=== PATIENT | male | born 1965 | race Caucasian/White ===

== ENCOUNTER 2018-02-23 16:24 | Inpatient (IN) | payer BC ==
[~2018-02-23] VITALS: Ht 177.8 cm; Wt 58.1 kg
[~2018-02-23 16:24] MED LIST: ACYC15OI8; ALBU18HF2 INH; EMTR1TAB10 PO; NAPR-1009; NATE60TA4 PO; URSO500T9 PO
[2018-02-23] MEDS ORDERED: ONDANSETRON ODT 4 MG TABLET PO (16:47)
[2018-02-23] MEDS ORDERED: DIAZEPAM 2 MG TABLET (16:47)
[2018-02-23] MEDS ORDERED: METHYLPREDNISOLONE 4 MG DOSEPK (16:47)
[2018-02-23] MEDS ORDERED: SITA100T PO (16:50)
[2018-02-23] MEDS ORDERED: FAMO-132 PO (16:50)
[2018-02-23] MEDS ORDERED: FLUT1BLS IH (16:50)
[2018-02-23] MEDS ORDERED: METH4TAB21 PO (16:50)
[2018-02-23] MEDS ORDERED: ONDANSETRON 4 MG/2 ML VIAL IV ONE (17:15)
[2018-02-23] MEDS ORDERED: HYDROMORPHONE 1 MG/1 ML DISP.SYRIN IV ONE (17:15)
[2018-02-23] MEDS ORDERED: IV NORMAL SALINE 1000 ML BAG IV ONE ×2 (17:15→18:30)
[2018-02-23 17:29] LABS: BASOPHILS # (AUTO) 0.1 K/uL (0.0-8.0); BASOPHILS % (AUTO) 0.6 % (0.0-2.0); EOSINOPHILS % (AUTO) 0.2 % (0.0-7.0); HEMATOCRIT 47.3 % (36.7-47.1); HEMOGLOBIN 15.9 g/dL (12.5-16.3); LYMPHOCYTES # (AUTO) 1.3 K/uL (20.0-40.0); LYMPHOCYTES % (AUTO) 10.8 % (20.5-51.5); MEAN CORPUSCULAR HEMOGLOBIN 31.4 uug (23.8-33.4); MEAN CORPUSCULAR HGB CONC 34 g/dL (32.5-36.3); MEAN CORPUSCULAR VOLUME 93.2 fL (73.0-96.2); MONOCYTES # (AUTO) 0.6 K/uL (2.0-10.0); MONOCYTES % (AUTO) 5.1 % (0.0-11.0); NEUTROPHILS # (AUTO) 10.4 K/uL (1.8-8.9); NEUTROPHILS % (AUTO) 83.3 % (38.5-71.5); PLATELET COUNT (AUTO) 178 K/uL (152-348); RED BLOOD CELL COUNT(AUTO) 5.08 MIL/uL (4.06-5.63); WHITE BLOOD COUNT (AUTO) 12.5 K/uL (3.6-10.2)
[2018-02-23 17:33] LABS: CREATININE 0.8 mg/dL (0.6-1.3); POTASSIUM 3.9 mmol/L (3.5-5.1)
[2018-02-23] MEDS ORDERED: ONDANSETRON 4 MG/2 ML VIAL ONE (17:36)
[2018-02-23] MEDS ORDERED: HYDROMORPHONE 2 MG/1 ML DISP.SYRIN ONE (17:36)
[2018-02-23] MEDS ORDERED: MAGNESIUM HYDROXIDE 30 ML LIQUID UDC PO PRN (18:45)
[2018-02-23] MEDS ORDERED: HYDROCODONE/APAP 10-325 MG TABLET PO PRN (18:45)
[2018-02-23] MEDS ORDERED: HYDROMORPHONE 1 MG/1 ML DISP.SYRIN IV PRN (18:45)
[2018-02-23] MEDS ORDERED: ACETAMINOPHEN 325 MG TABLET PO PRN (18:45)
--- NOTE | 2018-02-23 18:46 | NUR ---
Pt. admitted to TELE, under care of Dr. Allison Belongs List completed
--- NOTE | 2018-02-23 18:55 | NUR ---
PT ARRIVED ON THE UNIT VIA GURNEY, CALM, COOPERATIVE, NO SIGNS OF RESPIRATORY DISTRESS NOTED AT THIS TIME, AOX3, SKIN INTACT, IV SITE PATENT. CONTINUE TO MONITOR.
[2018-02-23] MEDS ORDERED: CYCLOBENZAPRINE HCL 10 MG TABLET PO PRN (19:00)
--- NOTE | 2018-02-23 19:45 | NUR ---
Dheeraj PUBLIC AFFAIRS DIRECTOR at bedside with patient discussing POC. Changed [place] to Percocet for pain. Patient orientated to unit and use of call light. Instructed to not get out of bed without assistance due to dizziness. Partner is at bedside. Belongings list completed. Admission interview questions conducted and reviewing admission orders at this time.
[2018-02-23 20:00] VITALS: BP 136/86
[2018-02-23] MEDS: ONDANSETRON 4 MG/2 ML VIAL IV PRN (23:54)
[2018-02-23] MEDS: OXYCODONE/APAP 5-325 MG TABLET PO PRN (23:58)
[2018-02-24] MEDS: TEMAZEPAM 15 MG CAPSULE PO PRN (00:17)
[2018-02-24 04:26] VITALS: BP 151/81
[2018-02-24 06:00] LABS: LYMPHOCYTES # (AUTO) 1.3 K/uL (20.0-40.0); MEAN CORPUSCULAR VOLUME 92.9 fL (73.0-96.2); MONOCYTES # (AUTO) 0.4 K/uL (2.0-10.0)
[2018-02-24] MEDS: ONDANSETRON 4 MG/2 ML VIAL IV PRN (06:00)
[2018-02-24] MEDS: OXYCODONE/APAP 5-325 MG TABLET PO PRN (06:01)
[2018-02-24 06:11] LABS: CREATININE 0.8 mg/dL (0.6-1.3)
[2018-02-24 06:45] LABS: BASOPHILS % (AUTO) 0.5 % (0.0-2.0); EOSINOPHILS % (AUTO) 0.3 % (0.0-7.0); LYMPHOCYTES % (AUTO) 18.3 % (20.5-51.5); MEAN CORPUSCULAR HGB CONC 34 g/dL (32.5-36.3); MONOCYTES % (AUTO) 5.8 % (0.0-11.0); NEUTROPHILS # (AUTO) 5.2 K/uL (1.8-8.9); NEUTROPHILS % (AUTO) 75.1 % (38.5-71.5); PLATELET COUNT (AUTO) 135 K/uL (152-348); RED BLOOD CELL COUNT(AUTO) 4.46 MIL/uL (4.06-5.63)
[2018-02-24 06:47] LABS: HEMATOCRIT 41.4 % (36.7-47.1); HEMOGLOBIN 14.3 g/dL (12.5-16.3)
[2018-02-24] MEDS: PANTOPRAZOLE SODIUM 40 MG TABLET.DR PO SCH (06:48)
--- NOTE | 2018-02-24 07:39 | NUR ---
Noted pt with 100mL of green watery emesis. Pt received Zofran 4mg IV at 0600. Per pt, he suddenly felt nauseous when he tried to get up for the bathroom just now. Pt c/o 05/15 headache, Percocet 5/325mg given at 0600 per pt was ineffective. Will administer Dilaudid 1mg IV PRN. Will continue to monitor.
[2018-02-24 08:00] VITALS: BP 141/96
[2018-02-24] MEDS: HYDROMORPHONE 2 MG/1 ML DISP.SYRIN IV PRN ×3 (08:03→17:35)
[2018-02-24] MEDS ORDERED: GADODIAMIDE 5 MMOL/10 ML VIAL ONE (08:17)
--- NOTE | 2018-02-24 10:07 | NUR ---
Seen and examined by Doug Esqueda NP.
[2018-02-24 11:50] VITALS: BP 138/80
[2018-02-24] MEDS: IV NS 1000 ML 1,000 ML IV PRN ×2 (15:03)
[2018-02-24] MEDS ORDERED: DEXTROSE 50% 50 ML DISP.SYRIN IV PRN (15:45)
[2018-02-24 16:15] VITALS: BP 140/86
[2018-02-24] MEDS: BLOOD SUGAR DIAGNOSTIC 1 EACH STRIP VI SCH ×2 (17:35→20:08)
[2018-02-24] MEDS: INSULIN REGULAR, HUMAN 300 UNIT/3 ML VIAL SQ PRN ×2 (17:44→20:10)
--- NOTE | 2018-02-24 18:20 | NUR ---
Pt left for Head MRI with and without contrast. Accompanied by x2 [facility] Staff. Left in fair condition. No acute distress noted. Endorsed to [facility] staff.
--- NOTE | 2018-02-24 19:45 | NUR ---
RECEIVED PATIENT BACK FROM [facility] [place]. PATIENT IS A/O X4. NO C/O PAIN ON TIME OF ARRIVAL BACK TO THE FLOOR. NO RESP. DISTRESS NOTED. HEPLOCK INTACT AND PATENT, NOTED TO LEFT HAND #22 GAUGE. PATIENT RESTARTED ON IVF ORDERED. DR. XIONG, PAIN MANAGEMENT MD AT BEDSIDE TO ASSESS PATIENT. CALL LIGHT IN REACH. ALL NEEDS ATTENDED. WILL CONTINUE TO MONITOR AND ASSESS.
[2018-02-24 20:00] VITALS: BP 138/88
--- NOTE | 2018-02-24 20:30 | NUR ---
DR. XIONG, STATED HE WILL COME BACK [facility] TO REVIEW RESULTS FROM MRI. ALL NEEDS ATTENDED.
[2018-02-24] MEDS: GABAPENTIN 300 MG CAPSULE PO SCH (21:34)
[2018-02-25] MEDS: ACETAMINOPHEN 325 MG TABLET PO SCH ×5 (00:02→23:56)
[2018-02-25] MEDS: TEMAZEPAM 15 MG CAPSULE PO PRN (00:08)
[2018-02-25 03:06] LABS: *BASOS 0 % (Not Estab.); *EOS 1 % (Not Estab.); *HCT 43.2 % (37.5-51.0); *HGB 14.6 g/dL (13.0-17.7); *IMMATURE GRANULOCYTES 0.1 x10E3/uL (0.0-0.1); *IMMATURE GRANULOCYTES 1 % (Not Estab.); *LYMPHOCYTES 18 % (Not Estab.); *LYMPHOCYTES ABSOLUTE 1.5 x10E3/uL (0.7-3.1); *MCH 31.9 pg (26.6-33.0); *MCHC 33.8 g/dL (31.5-35.7); *MCV 94 fL (79-97); *MONOCYTES 7 % (Not Estab.); *MONOCYTES ABSOLUTE 0.5 x10E3/uL (0.1-0.9); *NEUTROPHILS 73 % (Not Estab.); *NEUTROPHILS ABSOLUTE 5.8 x10E3/uL (1.4-7.0); *PLT 149 x10E3/uL (150-379); *RBC 4.58 x10E6/uL (4.14-5.80); *RDW 15.1 % (12.3-15.4); *WBC 7.9 x10E3/uL (3.4-10.8)
[2018-02-25 04:00] VITALS: BP 128/87
--- NOTE | 2018-02-25 06:00 | NUR ---
PATIENT RESTING IN BED. SLEPT WELL. DENIES PAIN AT THIS TIME. NO RESP. DISTRESS NOTED. IVF INFUSING WELL. CALL LIGHT IN REACH. ALL NEEDS ATTENDED. WILL CONTINUE TO MONITOR.
[2018-02-25] MEDS: PANTOPRAZOLE SODIUM 40 MG TABLET.DR PO SCH (06:08)
[2018-02-25] MEDS: IV NS 1000 ML 1,000 ML IV PRN ×2 (06:29→20:00)
[2018-02-25] MEDS: BLOOD SUGAR DIAGNOSTIC 1 EACH STRIP VI SCH ×4 (06:30→20:27)
--- NOTE | 2018-02-25 07:30 | NUR ---
PATIENT IS AWAKE ALERT AND ORIENTED HE WAS INSTRUCTED THAT HIS RADIOLOGIST DR BRYANT HAS ORDERED A SPINAL TAP TODAY TO RULE OUT MENINGITIS ANS WE WILL PLACE HIM ON CONTACT ISOLATION UNTIL THE SPINAL TAP IS DONE AND RESULTED AND HE EXPRESSED UNDERSTANDING.
[2018-02-25] MEDS: INSULIN REGULAR, HUMAN 300 UNIT/3 ML VIAL SQ PRN ×4 (08:12→20:34)
--- NOTE | 2018-02-25 09:15 | NUR ---
DR BRYANT HERE TO SEE PATIENT AND AWARE THAT WE PLACED PATIENT ON ISOLATION BASED ON THE SPINAL TAP ORDER TO RULE OUT MENINGITIS WE ARE STILL WAITING FOR THE LUMBAR SPINAL TAP AND PER THE TECH THE RADIOLOGIST WILL BE HERE THIS AFTERNOON.
[2018-02-25 11:06] LABS: *HELPER T-LYMPH MARKR(CD4)ABSO 599 /uL (359-1519); *HELPER T-LYNPH MARKER CD4)% 39.9 % (30.8-58.5)
[2018-02-25] MEDS: HYDROMORPHONE 2 MG/1 ML DISP.SYRIN IV PRN ×2 (11:32→16:46)
--- NOTE | 2018-02-25 11:51 | NUR ---
PATIENT REFUSED TYLENOL ORDERED REQUESTED FOR DILAUDID GIVEN ORDERED.CONSCENT FOR THE LUMBAR PUNCTURE OBTAINED PRIOR TO DILAUDID BEING GIVEN.
[2018-02-25 12:07] VITALS: BP 143/90
--- NOTE | 2018-02-25 13:41 | NUR ---
CALL RECEIVED FROM DR SCHMIDT WANTED TO KNOW IF PATIENT WAS ON ANTICOAGULANTS AND I SAID NO AND ALSO IF PATIENT SIGNED THE CONSCENT YET AND I SAID YES SO HE STATED FOR ME TO ORDER CBC PT/PTT WITH INR STATED THAT HE WILL CALL DR BRYANT.
[2018-02-25 14:11] LABS: BASOPHILS # (AUTO) 0.1 K/uL (0.0-8.0); BASOPHILS % (AUTO) 0.8 % (0.0-2.0); EOSINOPHILS # (AUTO) 0.1 K/uL (0.0-0.7); EOSINOPHILS % (AUTO) 0.9 % (0.0-7.0); HEMATOCRIT 44.1 % (36.7-47.1); LYMPHOCYTES # (AUTO) 1.4 K/uL (20.0-40.0); LYMPHOCYTES % (AUTO) 18.6 % (20.5-51.5); MEAN CORPUSCULAR HEMOGLOBIN 31.7 uug (23.8-33.4); MEAN CORPUSCULAR HGB CONC 34 g/dL (32.5-36.3); MEAN CORPUSCULAR VOLUME 93.3 fL (73.0-96.2); MONOCYTES # (AUTO) 0.4 K/uL (2.0-10.0); MONOCYTES % (AUTO) 5.8 % (0.0-11.0); NEUTROPHILS # (AUTO) 5.6 K/uL (1.8-8.9); NEUTROPHILS % (AUTO) 73.9 % (38.5-71.5); PLATELET COUNT (AUTO) 136 K/uL (152-348); RED BLOOD CELL COUNT(AUTO) 4.73 MIL/uL (4.06-5.63); WHITE BLOOD COUNT (AUTO) 7.6 K/uL (3.6-10.2)
[2018-02-25 16:23] VITALS: BP 124/0
--- NOTE | 2018-02-25 17:10 | NUR ---
PATIENT IS RESTING MEDICATED TWO TIMES FOR C/O SEVERE PAIN WITH DILAUDID STATED THAT OTHER MEDICATIONS DOES NOT HELP HIM GIVEN ORDERED
[2018-02-25 19:30] VITALS: BP 146/87
--- NOTE | 2018-02-25 20:00 | NUR ---
RECEIVED PATIENT AWAKE IN BED WITH PARTNER AT BEDSIDE. PATIENT IS A/O X4. NO C/O PAIN OR H.A AT THIS TIME. DENIES ANY N/V. IVF INFUSING WELL TO LEFT HAND #22 GAUGE. PATIENT IS ON ISOLATION FOR POSSIBLE MENINGITIS. VSS. CALL LIGHT IN REACH. ALL NEEDS ATTENDED. WILL CONTINUE TO MONITOR AND ASSESS.
[2018-02-25] MEDS: GABAPENTIN 300 MG CAPSULE PO SCH (20:16)
[2018-02-26] MEDS: HYDROMORPHONE 2 MG/1 ML DISP.SYRIN IV PRN ×5 (00:43→21:02)
--- NOTE | 2018-02-26 01:00 | NUR ---
DR. ISA CAT CALLED TO INFORM THAT HE WOULD BE DOING THE PATIENTS LUMBAR PUNCTURE IN THE AM. NOTIFIED GRIDDLE ATTENDANT. ALL NEEDS ATTENDED. PATIENT ALSO INFORMED. VERBALIZED UNDERSTANDING.
[2018-02-26 05:03] VITALS: BP 118/84
[2018-02-26] MEDS: ACETAMINOPHEN 325 MG TABLET PO SCH ×4 (05:53→23:28)
[2018-02-26] MEDS: PANTOPRAZOLE SODIUM 40 MG TABLET.DR PO SCH (06:08)
--- NOTE | 2018-02-26 06:30 | NUR ---
PATIENT AWAKE IN BED. C/O HEADACHE. PATIENT GIVEN DILAUDID 1MG IV PER IMPROVEMENT LEADER. VSS. CONSENT SIGNED FOR LUMBAR PUNCTURE IM AM. SLEPT AT INTERVALS. CALL LIGHT IN REACH. ALL NEEDS ATTENDED. WILL CONTINUE TO MONITOR.
[2018-02-26] MEDS: BLOOD SUGAR DIAGNOSTIC 1 EACH STRIP VI SCH ×4 (06:33→21:02)
--- NOTE | 2018-02-26 07:45 | NUR ---
ALERT ORIENTED STATED COMFORTABLE AT THIS TIME HAD PAIN MEDICATION ADMINISTERED AT 0630 AWAITING FOR THE LUMBER PUNCTURE ORDERED.REMAINS ON CONTACT ISOLATION AT THIS TIME PENDING THE RESULT OF THE LUMBER PUNCTURE AND PATIENT IS AWARE.
[2018-02-26] MEDS: INSULIN REGULAR, HUMAN 300 UNIT/3 ML VIAL SQ PRN ×3 (08:17→16:55)
[2018-02-26 09:06] LABS: *BASOS 0 % (Not Estab.); *EOS 1 % (Not Estab.); *EOS ABSOLUTE 0.1 x10E3/uL (0.0-0.4); *HCT 43.1 % (37.5-51.0); *HGB 14.1 g/dL (13.0-17.7); *IMMATURE GRANULOCYTES 1 % (Not Estab.); *LYMPHOCYTES 19 % (Not Estab.); *LYMPHOCYTES ABSOLUTE 1.3 x10E3/uL (0.7-3.1); *MCH 31.3 pg (26.6-33.0); *MCHC 32.7 g/dL (31.5-35.7); *MCV 96 fL (79-97); *MONOCYTES 7 % (Not Estab.); *MONOCYTES ABSOLUTE 0.5 x10E3/uL (0.1-0.9); *NEUTROPHILS 72 % (Not Estab.); *PLT 130 x10E3/uL (150-379); *RDW 15.3 % (12.3-15.4); *WBC 6.8 x10E3/uL (3.4-10.8)
[2018-02-26] MEDS: IV NS 1000 ML 1,000 ML IV PRN ×2 (09:31→20:22)
[2018-02-26 11:32] VITALS: BP 104/84
--- NOTE | 2018-02-26 11:45 | NUR ---
LUMBER PUNCTURE WAS DONE AT THE BEDSIDE BY DR ISA CAT AND CSF FLUID OBTAINED WAS SENT TO THE LAB WAS HANDED TO EB AT 1200 PATIENT TOLERATED PROCEDURE WELL.
[2018-02-26 13:03] LABS: CSF GLUCOSE 87 mg/dL (40-70); CSF PROTEIN 111 mg/dL (15-45)
--- NOTE | 2018-02-26 13:21 | NUR ---
RECEIVED A CALL FROM THE LAB CSF GLUCOSE IS 87 AND CSF PROTEIN IS [address] LYNN OFFICE AND LEFT A MESSAGE ON HER VOICE MAIL
[2018-02-26 15:15] VITALS: BP 146/99
--- NOTE | 2018-02-26 17:28 | NUR ---
PATIENT IS RESTING WAS MEDICATED FOR HEADACHE ORDERED NO BLEEDING FROM THE LUMBAR PUNCTURE SITE MADE COMFORTABLE AND WILL CONTINUE TO OBSERVE.
[2018-02-26 19:00] VITALS: BP 145/91
[2018-02-26] MEDS: GABAPENTIN 300 MG CAPSULE PO SCH (20:22)
[2018-02-26] MEDS: URSODIOL 500 MG PO SCH (20:23)
[2018-02-26] MEDS: [UNRECOGNIZED DRUG - OTHER] PO SCH (20:23)
[2018-02-26] MEDS: RILPIVIRINE PO SCH (20:23)
[2018-02-26] MEDS: [UNRECOGNIZED DRUG - OTHER] PO SCH (20:23)
[2018-02-26] MEDS: TENOFOVIR DISOPROXIL FUMARATE PO SCH (20:23)
[2018-02-26] MEDS: EMTRICITABINE PO SCH (20:23)
[2018-02-26] MEDS ORDERED: URSODIOL 300 MG CAPSULE PO SCH (21:00)
[2018-02-27 04:34] VITALS: BP 132/89
[2018-02-27] MEDS: HYDROMORPHONE 2 MG/1 ML DISP.SYRIN IV PRN ×4 (05:31→21:59)
[2018-02-27] MEDS: ACETAMINOPHEN 325 MG TABLET PO SCH ×3 (06:02→17:50)
[2018-02-27] MEDS: PANTOPRAZOLE SODIUM 40 MG TABLET.DR PO SCH (06:13)
[2018-02-27] MEDS: IV NS 1000 ML 1,000 ML IV PRN ×2 (06:41→11:28)
--- NOTE | 2018-02-27 06:56 | NUR ---
PT CONTINUE TO HAVE HEADCHE, CONTROLLED WELL WITH DILAUDID SHOT AND SLEPT WELL LAST NIGHT, CONTINUE WITH IV FLUIDS,VSS,AFEBRILE,WILL CONTINUE TO MONITOR
--- NOTE | 2018-02-27 08:10 | NUR ---
PATIENT IS ALERT ORIENTED AND VERBALLY RESPONSIVE STATED COMFORTABLE AT THIS TIME.REMAIN ON IVF ORDERED WITH NO S/SOF INFILTERATION AT THIS TIME.CONTINUES ON MENINGITIS PRECAUTIONS PATIENT MADE COMFORTABLE AND WILL CONTINUE TO OBSERVE.
[2018-02-27] MEDS: BLOOD SUGAR DIAGNOSTIC 1 EACH STRIP VI SCH ×4 (08:34→21:55)
[2018-02-27] MEDS: INSULIN REGULAR, HUMAN 300 UNIT/3 ML VIAL SQ PRN ×4 (08:36→21:56)
[2018-02-27 09:07] LABS: *HELPER T-LYMPH MARKR(CD4)ABSO 486 /uL (359-1519); *HELPER T-LYNPH MARKER CD4)% 37.4 % (30.8-58.5)
[2018-02-27 11:55] VITALS: BP 125/83
--- NOTE | 2018-02-27 12:15 | NUR ---
PATIENT SEEN AND EXAMINED BY NOHEMY THOMAS WITH NEW ORDERS AND NOTED ID SPECIALIST WILL SEE PATIENT TODAY.
--- NOTE | 2018-02-27 13:40 | NUR ---
PATIENT IS RESTING PAIN IS BEING MANAGED BY THE PAIN MEDICATIONS ORDERED WILL CONTINUE TO OBSERVE.
[2018-02-27 15:57] VITALS: BP 153/97
--- NOTE | 2018-02-27 17:30 | NUR ---
PATIENT CONTINUE TO REQUEST PAIN MEDICATIONS FOR C/O SEVERE HEADACHE AND HELPFUL REMAIN ON IVF ORDERED MADE COMFORTABLE AND WILL CONTINUE TO OBSERVE.
--- NOTE | 2018-02-27 19:20 | NUR ---
RECEIVED PT AWAKE, ALERT, AND ORIENTEDX4. PT SHOWS NO SIGNS OF DISTRESS. PT IV INTACT AND PATENT.CALL LIGHT WITHIN REACH, BED ALARM ON, IN LOW POSITION ,AND SIDE RAILS X2UP. WILL CONTINUE TO MONITOR.
[2018-02-27 19:46] VITALS: BP 127/85
--- NOTE | 2018-02-27 21:26 | NUR ---
PHARMACY CLINICAL NOTES: (VANCOMYCIN DOSING) S: 52 YO male with DX of cellulitis. MD ordered Vancomycin O: BUN/SCR 9/0.8 (02/24); WBC 7.6 ( 02/25) ; TEMP 98.4, DOSING WT 128 LBS A/P: will dose vanco as 1000 mg q14h starting tonight,estimated peak of 41 and trough of 18. will order trough prior to 4th dose and adjust the dose if necessary. will continue to monitor.
[2018-02-27] MEDS: [UNRECOGNIZED DRUG - OTHER] PO SCH (21:54)
[2018-02-27] MEDS: TENOFOVIR DISOPROXIL FUMARATE PO SCH (21:54)
[2018-02-27] MEDS: GABAPENTIN 300 MG CAPSULE PO SCH (21:54)
[2018-02-27] MEDS: URSODIOL 500 MG PO SCH (21:54)
[2018-02-27] MEDS: EMTRICITABINE PO SCH (21:54)
[2018-02-27] MEDS: RILPIVIRINE PO SCH (21:54)
[2018-02-27] MEDS: [UNRECOGNIZED DRUG - OTHER] PO SCH (21:54)
[2018-02-27] MEDS: VANCOMYCIN IV 1 G in PREMIXED 0 EACH IV SCH (22:10)
[2018-02-28] MEDS: ACETAMINOPHEN 325 MG TABLET PO SCH ×2 (00:45→06:36)
[2018-02-28] MEDS: IV NS 1000 ML 1,000 ML IV PRN ×2 (00:48→16:23)
[2018-02-28] MEDS: TEMAZEPAM 15 MG CAPSULE PO PRN (00:57)
[2018-02-28 03:46] VITALS: BP 128/84
[2018-02-28] MEDS: PANTOPRAZOLE SODIUM 40 MG TABLET.DR PO SCH (06:34)
[2018-02-28] MEDS: BLOOD SUGAR DIAGNOSTIC 1 EACH STRIP VI SCH ×4 (06:34→20:38)
[2018-02-28 06:48] LABS: CREATININE 0.8 mg/dL (0.6-1.3); POTASSIUM 3.7 mmol/L (3.5-5.1)
[2018-02-28 06:54] LABS: BASOPHILS % (AUTO) 0.7 % (0.0-2.0); EOSINOPHILS # (AUTO) 0.1 K/uL (0.0-0.7); HEMATOCRIT 41.1 % (36.7-47.1); HEMOGLOBIN 14.2 g/dL (12.5-16.3); LYMPHOCYTES # (AUTO) 1.5 K/uL (20.0-40.0); LYMPHOCYTES % (AUTO) 25.1 % (20.5-51.5); MEAN CORPUSCULAR HGB CONC 35 g/dL (32.5-36.3); MEAN CORPUSCULAR VOLUME 92.8 fL (73.0-96.2); MONOCYTES # (AUTO) 0.4 K/uL (2.0-10.0); MONOCYTES % (AUTO) 7.7 % (0.0-11.0); NEUTROPHILS # (AUTO) 3.7 K/uL (1.8-8.9); NEUTROPHILS % (AUTO) 64.5 % (38.5-71.5); PLATELET COUNT (AUTO) 112 K/uL (152-348); RED BLOOD CELL COUNT(AUTO) 4.43 MIL/uL (4.06-5.63); WHITE BLOOD COUNT (AUTO) 5.8 K/uL (3.6-10.2)
--- NOTE | 2018-02-28 06:57 | NUR ---
PT SLEPT THROUGHOUT THE SHIFT. PT SHOWS NO SIGNS OF DISTRESS. IV INTACT AND PATENT. PAIN MANAGEMENT DONE. VITAL SIGNS WNL. SAFETY AND COMFORT PROVIDED. WILL ENDORSE TO DAYSHIFT NURSE.
[2018-02-28] MEDS: INSULIN REGULAR, HUMAN 300 UNIT/3 ML VIAL SQ PRN ×4 (07:51→21:24)
[2018-02-28] MEDS: HYDROMORPHONE 2 MG/1 ML DISP.SYRIN IV PRN ×3 (08:30→21:28)
--- NOTE | 2018-02-28 08:30 | NUR ---
PATIENT IS HAVING SEVERE HEADACHE RUBBING HIS HEAD MOANING MEDICATED WITH DILAUDID ORDERED REMAIN ON IVF WITH NO S/S OF INFILTERATION AT THIS TIME.MADE COMFORTABLE AND WILL CONTINUE TO OBSERVE.
[2018-02-28] MEDS ORDERED: VALACYCLOVIR HCL 500 MG TABLET PO SCH (10:30)
[2018-02-28] MEDS ORDERED: DEXAMETHASONE SOD PHOSPHATE 10 MG INJ IV ONE (10:30)
--- NOTE | 2018-02-28 10:43 | NUR ---
DR ISA CAT HERE TO SEE PATIENT AND REVIEWED THE CSF FLUID RESULT WITH NEW ORDERS STATED THAT P[ATIENT DOES NOT NEED TO BE ON ISOLATION AT THIS TIME
[2018-02-28] MEDS: VANCOMYCIN IV 1 G in PREMIXED 0 EACH IV SCH (11:22)
[2018-02-28 11:56] VITALS: BP 124/87
--- NOTE | 2018-02-28 13:59 | NUR ---
CALL RECEIVED FROM DR ISA CAT STATED TO DISCONTINUE THE VALTREX STATED WILL ORDER ACYCLOVIR AWAITING FOR ORDERS.
--- NOTE | 2018-02-28 15:54 | NUR ---
PHARMACY CLINICAL NOTES: (VANCOMYCIN DOSING) S: 52 YO male with DX of cellulitis. MD ordered Vancomycin O: BUN/SCR 9/0.8 WBC 5.8; TEMP 98.5, DOSING WT 128 LBS A/P: will continue vanco 1000 mg q14h (second dose given today at 1100) for estimated peak of 41 and trough of 18. will order trough prior to 4th dose (ordered for tomorrow at 1430) and adjust the dose if necessary. will continue to monitor.
[2018-02-28 16:00] VITALS: BP 130/89
--- NOTE | 2018-02-28 17:11 | NUR ---
PATIENT STATED HAS RELIEF FROM THE DEXAMETHASONE ORDERED THE HEADACHE IS BETTER WILL CONTINUE TO OBSERVE PATIENT.
[2018-02-28] MEDS: ACYCLOVIR IV 500 MG in IV DEXTROSE 5% 100 ML IV SCH ×2 (17:25→21:25)
[2018-02-28 19:00] VITALS: BP 134/89
--- NOTE | 2018-02-28 19:05 | NUR ---
BEATRIZ OVER THE HORIZON TARGETING SUPERVISOR HERE TO SEE PATIENT WITH NO NEW ORDERS AT THIS TIME ARIE ACYCLOVIER ORDERED.
[2018-02-28] MEDS: ONDANSETRON 4 MG/2 ML VIAL IV PRN (19:45)
--- NOTE | 2018-02-28 20:00 | NUR ---
RECEIVED PT AWAKE, ALERT, ORIENTEDX4. PT VOMITX1 AND FEELS DIZZY.GAVE ZOFRAN. AND AFTER 30 MINUTES DIZZINESS AND EMESIS CONTROLLED. PT IV INTACT AND PATENT. CALL LIGHT WITHIN REACH, BED ALARM ON AND IN LOW POSITION AND SIDE RAILS UPX2. WILL CONTINUE TO MONITOR.
[2018-02-28] MEDS: GABAPENTIN 300 MG CAPSULE PO SCH (21:25)
[2018-02-28] MEDS: [UNRECOGNIZED DRUG - OTHER] PO SCH (21:25)
[2018-02-28] MEDS: RILPIVIRINE PO SCH (21:25)
[2018-02-28] MEDS: TENOFOVIR DISOPROXIL FUMARATE PO SCH (21:25)
[2018-02-28] MEDS: URSODIOL 500 MG PO SCH (21:25)
[2018-02-28] MEDS: [UNRECOGNIZED DRUG - OTHER] PO SCH (21:25)
[2018-02-28] MEDS: EMTRICITABINE PO SCH (21:25)
[2018-03-01] MEDS: VANCOMYCIN IV 1 G in PREMIXED 0 EACH IV SCH ×2 (00:50→16:07)
[2018-03-01] MEDS: TEMAZEPAM 15 MG CAPSULE PO PRN (00:50)
[2018-03-01] MEDS: HYDROMORPHONE 2 MG/1 ML DISP.SYRIN IV PRN ×5 (00:51→21:21)
[2018-03-01 04:00] VITALS: BP 105/84
[2018-03-01] MEDS: ACYCLOVIR IV 500 MG in IV DEXTROSE 5% 100 ML IV SCH ×3 (05:56→21:21)
[2018-03-01] MEDS: PANTOPRAZOLE SODIUM 40 MG TABLET.DR PO SCH (06:08)
--- NOTE | 2018-03-01 06:43 | NUR ---
PT SLEPT INTERMITTENTLY.PRESCRIBED MEDICATION GIVEN AND PT TOLERATED IT WELL. IV INTACT. VITAL SIGNS WNL.PAIN MANAGEMENT DONE. CALL LIGHT WITHIN REACH. SAFETY AND COMFORT PROVIDED. WILL ENDORSE TO DAYSHIFT NURSE.
[2018-03-01] MEDS: BLOOD SUGAR DIAGNOSTIC 1 EACH STRIP VI SCH ×4 (08:29→20:12)
--- NOTE | 2018-03-01 08:30 | NUR ---
Received patient, awake alert x4. With Headache rated as 9/10. Afebrile. With nausea no vomiting noted. PRN Zofran and Dilaudid given. With intact IV G 20 over left forearm D5NS at 75cc infusing well.
[2018-03-01] MEDS: INSULIN REGULAR, HUMAN 300 UNIT/3 ML VIAL SQ PRN ×4 (08:31→20:15)
[2018-03-01] MEDS: ONDANSETRON 4 MG/2 ML VIAL IV PRN ×2 (08:47→18:54)
[2018-03-01] MEDS: FAMOTIDINE 20 MG TABLET PO SCH (08:55)
[2018-03-01] MEDS: LINAGLIPTIN 5 MG TABLET PO SCH (08:55)
[2018-03-01] MEDS: FLUTICASONE/VILANTEROL 1 EACH BLST.W.DEV IH SCH (08:55)
[2018-03-01] MEDS ORDERED: SITAGLIPTIN PHOSPHATE 50 MG TABLET PO SCH (09:00)
--- NOTE | 2018-03-01 09:46 | NUR ---
Patient relieved from head ache rated as 4/10. Resting in bed, sleeping intermittently wakes up easily.
[2018-03-01] MEDS: IV NS 1000 ML 1,000 ML IV PRN (11:59)
[2018-03-01 12:09] VITALS: BP 125/82
--- NOTE | 2018-03-01 15:42 | NUR ---
PHARMACY CLINICAL NOTES: (VANCOMYCIN DOSING) S: 52 YO male with DX of cellulitis. MD ordered Vancomycin O: BUN/SCR 9/0.8(02/28) WBC 5.8(02/28); TEMP 98.5, DOSING WT 128 LBS Vancomycin trough 7.2 today at 1430 A/P: Since Vancomycin trough is under the therapeutic range, will increase dose to 1 gram IV every 9hrs(first dose today at 1600) and draw trough by 4th dose(not ordered yet)for expected trough around 15. Will monitor renal function closely to adjust the dose if needed. Will follow daily.
[2018-03-01 16:12] VITALS: BP 108/73
[2018-03-01 18:06] LABS: *HSV 1/2 PCR 1DNA CSF Negative (Negative); *HSV 1/2 PCR 2DNA CSF Negative (Negative)
[2018-03-01 20:00] VITALS: BP 139/87
--- NOTE | 2018-03-01 20:00 | NUR ---
PATIENT IS AWAKE WATCHING TV, AAOX3. DENIES PAIN OR ANY DISTRESS ON ASSESSMENT. SAFETY MEASURES IN PLACE, CALL LIGHT LEFT WITHIN PATIENT'S REACH. WILL CONTINUE TO MONITOR PATIENT
[2018-03-01] MEDS: [UNRECOGNIZED DRUG - OTHER] PO SCH (20:15)
[2018-03-01] MEDS: GABAPENTIN 300 MG CAPSULE PO SCH (20:15)
[2018-03-01] MEDS: URSODIOL 500 MG PO SCH (20:15)
[2018-03-01] MEDS: EMTRICITABINE PO SCH (20:16)
[2018-03-01] MEDS: [UNRECOGNIZED DRUG - OTHER] PO SCH (20:16)
[2018-03-01] MEDS: RILPIVIRINE PO SCH (20:16)
[2018-03-01] MEDS: TENOFOVIR DISOPROXIL FUMARATE PO SCH (20:16)
[2018-03-02] MEDS: VANCOMYCIN IV 1 G in PREMIXED 0 EACH IV SCH ×3 (01:05→19:54)
[2018-03-02 04:00] VITALS: BP 123/79
[2018-03-02] MEDS: HYDROMORPHONE 2 MG/1 ML DISP.SYRIN IV PRN ×5 (04:03→22:37)
[2018-03-02] MEDS: ONDANSETRON 4 MG/2 ML VIAL IV PRN ×3 (04:08→21:20)
[2018-03-02] MEDS: ACYCLOVIR IV 500 MG in IV DEXTROSE 5% 100 ML IV SCH ×3 (06:09→22:36)
[2018-03-02] MEDS: PANTOPRAZOLE SODIUM 40 MG TABLET.DR PO SCH (06:10)
[2018-03-02] MEDS: BLOOD SUGAR DIAGNOSTIC 1 EACH STRIP VI SCH ×4 (06:20→20:35)
[2018-03-02] MEDS: OXYCODONE/APAP 5-325 MG TABLET PO PRN (06:33)
--- NOTE | 2018-03-02 06:39 | NUR ---
PATIENT IS ASLEEP, SLEPT WELL THROUGH THE SHIFT. PAIN MEDS GIVEN REQUESTED BY PATIENT. NO ACUTE DISTRESS AT THIS TIME. NO FEVER ON THIS SHIFT, VSS STABLE. NO SIGNIFICANT CHANGES IN STATUS. SAFETY MEASURES MAINTAINED AT ALL TIMES
--- NOTE | 2018-03-02 07:30 | NUR ---
Patient awake, alert, verbally responsive, not in any form of acute distress. He denies any pain or discomfort at this time. Call light placed within reach. Reminded to use call light when in need of assistance with verbalized understanding.
[2018-03-02] MEDS: FAMOTIDINE 20 MG TABLET PO SCH (08:37)
[2018-03-02] MEDS: LINAGLIPTIN 5 MG TABLET PO SCH (08:37)
--- NOTE | 2018-03-02 08:40 | NUR ---
Patient complained of headache as well as nausea and episode of vomiting. Given PRN dilaudid IV and zofran IV as ordered.
[2018-03-02] MEDS: FLUTICASONE/VILANTEROL 1 EACH BLST.W.DEV IH SCH (08:48)
[2018-03-02] MEDS: IV NS 1000 ML 1,000 ML IV PRN (09:26)
[2018-03-02 11:44] VITALS: BP 143/71
[2018-03-02] MEDS: INSULIN REGULAR, HUMAN 300 UNIT/3 ML VIAL SQ PRN ×3 (12:20→20:37)
--- NOTE | 2018-03-02 13:42 | NUR ---
PHARMACY CLINICAL NOTES: (VANCOMYCIN DOSING) S: 52 YO male with DX of cellulitis. ordered Vancomycin O: BUN/SCR 9/0.8(02/28) WBC 5.8(02/28); TEMP 98.1, DOSING WT 128 LBS Vancomycin trough pending today at 1830 A/P: Will continue 1 gram IV every 9hrs and draw trough by 4th dose( due today at 1830)for expected trough around 15. Will check trough today when available and adjust regimen if needed. Will follow later this evening. Addendum: 03/02/18 at 1945 by DAVID BEAUCHAMP ADM TROUGH LEVEL @ 18:30 WAS 16.8 WITHIN THERAPEUTIC RANGE WILL CONTINUE WITH SAME REGIMEN WILL CONTINUE TO MONITOR
--- NOTE | 2018-03-02 15:00 | NUR ---
Notified Prieto Olea DNP regarding patient's complain of headache noted worse and asking PRN dilaudid IV more often. Pain is relieved by dilaudid IV, vital signs remain stable. Also informed Emmie regarding patient's complain of nausea with use of percocet and that patient having decreased oral intake because of headache. Emmie gave no new order. Will continue to monitor and will endorse to next shift accordingly.
[2018-03-02 15:56] VITALS: BP 134/85
--- NOTE | 2018-03-02 19:15 | NUR ---
RECEIVED PT AWAKE, ALERT, ORIENTEDX4. PT SHOWS NO SIGNS OF DISTRESS.VISITOR AT BEDSIDE.PT IV INTACT AND PATENT ON LEFT HAND . CALL LIGHT WITHIN REACH, BED ALARM, IN LOW POSITION AND SIDE RAILS UP X2.
[2018-03-02] MEDS: LEVOFLOXACIN 500 MG TABLET PO SCH (19:54)
[2018-03-02 20:00] VITALS: BP 129/79
[2018-03-02] MEDS: URSODIOL 500 MG PO SCH (21:19)
[2018-03-02] MEDS: RILPIVIRINE PO SCH (21:19)
[2018-03-02] MEDS: [UNRECOGNIZED DRUG - OTHER] PO SCH (21:19)
[2018-03-02] MEDS: EMTRICITABINE PO SCH (21:19)
[2018-03-02] MEDS: [UNRECOGNIZED DRUG - OTHER] PO SCH (21:19)
[2018-03-02] MEDS: GABAPENTIN 300 MG CAPSULE PO SCH (21:19)
[2018-03-02] MEDS: TENOFOVIR DISOPROXIL FUMARATE PO SCH (21:19)
[2018-03-03] MEDS: TEMAZEPAM 15 MG CAPSULE PO PRN (01:41)
[2018-03-03] MEDS: VANCOMYCIN IV 1 G in PREMIXED 0 EACH IV SCH ×3 (03:51→21:34)
[2018-03-03 04:00] VITALS: BP 113/73
[2018-03-03] MEDS: ACYCLOVIR IV 500 MG in IV DEXTROSE 5% 100 ML IV SCH ×3 (06:07→22:43)
[2018-03-03] MEDS: PANTOPRAZOLE SODIUM 40 MG TABLET.DR PO SCH (06:09)
--- NOTE | 2018-03-03 06:40 | NUR ---
PT SLEPT THROUGHOUT THE SHIFT. PT SHOWS NO SIGNS OF DISTRESS . PT IV INTACT. PT STABLE . SAFETY AND COMFORT PROVIDED. WILL ENDORSED TO DAYSHIFT NURSE.
[2018-03-03] MEDS: BLOOD SUGAR DIAGNOSTIC 1 EACH STRIP VI SCH ×4 (06:52→20:32)
--- NOTE | 2018-03-03 07:52 | NUR ---
Patient noted resting in bed with eyes closed, no complaints of pain, no signs of distress noted, call light in reach, bed locked and in lowest position, all needs met at this time
--- NOTE | 2018-03-03 08:00 | NUR ---
received report from previous nurse. patient stable upon initial assessment, awake in bed. no s.s acute distress. VSS. will monitor.
[2018-03-03] MEDS: FLUTICASONE/VILANTEROL 1 EACH BLST.W.DEV IH SCH (09:00)
[2018-03-03] MEDS: FAMOTIDINE 20 MG TABLET PO SCH (09:01)
[2018-03-03] MEDS: LINAGLIPTIN 5 MG TABLET PO SCH (09:01)
[2018-03-03] MEDS ORDERED: HYDROMORPHONE 2 MG/1 ML DISP.SYRIN ONE (11:01)
[2018-03-03] MEDS: HYDROMORPHONE 2 MG/1 ML DISP.SYRIN IV PRN ×2 (11:07→19:24)
[2018-03-03] MEDS: ONDANSETRON 4 MG/2 ML VIAL IV PRN ×2 (11:08→19:23)
[2018-03-03 11:24] VITALS: BP 120/70
[2018-03-03] MEDS: INSULIN REGULAR, HUMAN 300 UNIT/3 ML VIAL SQ PRN ×2 (12:03→16:44)
--- NOTE | 2018-03-03 14:40 | NUR ---
PHARMACY CLINICAL NOTES: (VANCOMYCIN DOSING) S: 52 YO male with DX of cellulitis. MD ordered Vancomycin O: BUN/SCR 9/0.8(02/28) WBC 5.8(02/28); TEMP 98.4, DOSING WT 128 LBS Vancomycin trough 03/02 @ 1830: 16.8 A/P: Will continue 1 gram IV every 9hrs as last level within therapeutic range. Will consider rechecking level if pt condition were to change or prolonged course continues. Will follow
[2018-03-03 15:07] VITALS: BP 110/74
--- NOTE | 2018-03-03 19:00 | NUR ---
patient stable this shift. received PRN dilaudid x2 due to headache. zofran given to prevent nausea as well. PRN medications effective. no new issues this shift. will endorse to cutter tender
--- NOTE | 2018-03-03 19:30 | NUR ---
1900 PT RECEIVED. PT VSS. PT COMPLAINT WITH CARE. PT VERBALIZED UNDERSTANDING PLAN OF CARE. 2100 PT WATCHING TV. FAMILY AT BEDSIDE. Addendum: 03/04/18 at 0343 by Gala Hernandez RN 2300 PT ASLEEP 0100 PT RESTING IN ROOM 0340 PT HAS BOOKER MANUEL GIVEN. Addendum: 03/04/18 at 2000 by Gala Hernandez RN 0500 PT ASLEEP 0730 REPORT GIVEN TO DAY SHIFT NURSE. PT VERBALIZED UNDERSTANDING PLAN OF CARE.
[2018-03-03 20:00] VITALS: BP 120/81
[2018-03-03] MEDS: LEVOFLOXACIN 500 MG TABLET PO SCH (20:18)
[2018-03-03] MEDS: URSODIOL 500 MG PO SCH (20:19)
[2018-03-03] MEDS: GABAPENTIN 300 MG CAPSULE PO SCH (20:19)
[2018-03-03] MEDS: EMTRICITABINE PO SCH (20:19)
[2018-03-03] MEDS: TENOFOVIR DISOPROXIL FUMARATE PO SCH (20:19)
[2018-03-03] MEDS: RILPIVIRINE PO SCH (20:19)
[2018-03-03] MEDS: [UNRECOGNIZED DRUG - OTHER] PO SCH (20:19)
[2018-03-03] MEDS: [UNRECOGNIZED DRUG - OTHER] PO SCH (20:19)
[2018-03-04] MEDS: ONDANSETRON 4 MG/2 ML VIAL IV PRN ×3 (03:37→13:01)
[2018-03-04] MEDS: HYDROMORPHONE 2 MG/1 ML DISP.SYRIN IV PRN ×4 (04:23→13:00)
[2018-03-04 04:32] VITALS: BP 137/88
[2018-03-04] MEDS: ACYCLOVIR IV 500 MG in IV DEXTROSE 5% 100 ML IV SCH ×3 (05:56→22:19)
[2018-03-04] MEDS: PANTOPRAZOLE SODIUM 40 MG TABLET.DR PO SCH (06:41)
[2018-03-04] MEDS: BLOOD SUGAR DIAGNOSTIC 1 EACH STRIP VI SCH ×4 (07:17→20:36)
[2018-03-04] MEDS: INSULIN REGULAR, HUMAN 300 UNIT/3 ML VIAL SQ PRN ×4 (07:20→20:42)
[2018-03-04] MEDS: VANCOMYCIN IV 1 G in PREMIXED 0 EACH IV SCH ×2 (07:21→17:01)
[2018-03-04] MEDS: FAMOTIDINE 20 MG TABLET PO SCH (08:37)
[2018-03-04] MEDS: LINAGLIPTIN 5 MG TABLET PO SCH (08:37)
[2018-03-04] MEDS: FLUTICASONE/VILANTEROL 1 EACH BLST.W.DEV IH SCH (08:39)
--- NOTE | 2018-03-04 10:49 | NUR ---
PHARMACY CLINICAL NOTES: (VANCOMYCIN DOSING) S: 52 YO male with DX of cellulitis. MD ordered Vancomycin O: BUN/SCR 9/0.8(02/28) WBC 5.8(02/28); TEMP 98.4, DOSING WT 128 LBS Vancomycin trough 03/02 @ 1830: 16.8 A/P: Will continue same dose of vanco1 gram IV every 9hrs for now. Will check BMP in am. Will follow
[2018-03-04 11:59] VITALS: BP 132/86
[2018-03-04] MEDS ORDERED: KETOROLAC TROMETHAMINE 30 MG INJ IVP ONE (15:00)
[2018-03-04] MEDS ORDERED: ASPIRIN/ACETAMINOPHEN/CAFFEINE TABLET PO PRN (15:00)
[2018-03-04 15:37] VITALS: BP 129/77
[2018-03-04] MEDS: IV NS 1000 ML 1,000 ML IV PRN (17:01)
--- NOTE | 2018-03-04 19:00 | NUR ---
1900 PT RESTING IN ROOM . VSS. PT VERBALIZED UNDERSTANDING PLAN OF CARE. PT COMPLIANT OF CARE. 2100 PT RESTING IN ROOM 2300 PT WATCHING TV 0100 PT ASLEEP 0300 PT RESTING IN ROOM Addendum: 03/05/18 at 0732 by Gala Hernandez RN 0300 PT ASLEEP 0500 PT ASLEEP 0600 PT C/O PAIN 0700 REPORT GIVEN TO DAY SHIFT NURSE . PT RESTING IN ROOM
[2018-03-04 20:00] VITALS: BP 120/81
[2018-03-04] MEDS: LEVOFLOXACIN 500 MG TABLET PO SCH (20:34)
[2018-03-04] MEDS: [UNRECOGNIZED DRUG - OTHER] PO SCH (20:35)
[2018-03-04] MEDS: URSODIOL 500 MG PO SCH (20:35)
[2018-03-04] MEDS: GABAPENTIN 300 MG CAPSULE PO SCH (20:35)
[2018-03-04] MEDS: EMTRICITABINE PO SCH (20:36)
[2018-03-04] MEDS: TENOFOVIR DISOPROXIL FUMARATE PO SCH (20:36)
[2018-03-04] MEDS: [UNRECOGNIZED DRUG - OTHER] PO SCH (20:36)
[2018-03-04] MEDS: RILPIVIRINE PO SCH (20:36)
[2018-03-05] MEDS: VANCOMYCIN IV 1 G in PREMIXED 0 EACH IV SCH ×3 (01:15→19:02)
[2018-03-05 05:19] VITALS: BP 102/68
[2018-03-05] MEDS: PANTOPRAZOLE SODIUM 40 MG TABLET.DR PO SCH (06:26)
[2018-03-05] MEDS: ACYCLOVIR IV 500 MG in IV DEXTROSE 5% 100 ML IV SCH ×3 (06:27→21:32)
[2018-03-05] MEDS: ONDANSETRON 4 MG/2 ML VIAL IV PRN ×2 (06:35→14:21)
[2018-03-05] MEDS: MORPHINE SULFATE 4 MG/1 ML DISP.SYRIN IV PRN ×2 (06:36→14:21)
[2018-03-05 06:53] LABS: CREATININE 0.8 mg/dL (0.6-1.3); POTASSIUM 3.8 mmol/L (3.5-5.1)
--- NOTE | 2018-03-05 07:27 | NUR ---
PATIENT RESTING COMFORTABLY IN BED AT THIS TIME, STABLE CONDITION, NO S/S OF DISTRESS. NO COMPLAINTS OF PAIN AT THI TIME. PAIN MEDICATION ADMINISTERED PREVIOUS SHIFT PER MEAT SMOKER NURSE. BLOOD SUGAR MANAGEMENT WILL BE PROVIDED. CALL LIGHT WITHIN REACH OF PATIENT. WILL CONTINUE TO MONITOR THROUGHOUT SHIFT.
[2018-03-05] MEDS: BLOOD SUGAR DIAGNOSTIC 1 EACH STRIP VI SCH ×4 (07:49→21:31)
[2018-03-05] MEDS: LINAGLIPTIN 5 MG TABLET PO SCH (08:16)
[2018-03-05] MEDS: FAMOTIDINE 20 MG TABLET PO SCH (08:16)
[2018-03-05] MEDS: FLUTICASONE/VILANTEROL 1 EACH BLST.W.DEV IH SCH (08:17)
[2018-03-05] MEDS: INSULIN REGULAR, HUMAN 300 UNIT/3 ML VIAL SQ PRN ×3 (08:18→21:33)
--- NOTE | 2018-03-05 10:57 | NUR ---
PHARMACY CLINICAL NOTES: (VANCOMYCIN DOSING) S: 52 YO male with DX of cellulitis. MD ordered Vancomycin O: BUN/SCR 10/0.8 WBC 5.8(02/28); TEMP 98.4, DOSING WT 128 LBS Vancomycin trough 03/02 @ 1830: 16.8 A/P: Will continue same dose of vanco1 gram IV every 9hrs for now since there has been no change in srcr since last result. Will follow
[2018-03-05 11:49] VITALS: BP 117/81
[2018-03-05] MEDS: IV NS 1000 ML 1,000 ML IV PRN (14:38)
[2018-03-05 15:40] VITALS: BP 123/88
[2018-03-05] MEDS: ASPIRIN/ACETAMINOPHEN/CAFFEINE TABLET PO SCH ×3 (16:49→23:59)
[2018-03-05 19:00] VITALS: BP 131/96
[2018-03-05] MEDS: LEVOFLOXACIN 500 MG TABLET PO SCH (19:02)
--- NOTE | 2018-03-05 19:18 | NUR ---
RECEIVED PT AWAKE, ALERT AND ORIIENTEDX4. PT SHOWS NO SIGNS OF DISTRESS. PT IV INTACT AND PATENT.VISITOR AT BEDSIDE. CALL LIGHT WITHIN REACH, BED ALARM ON, LOW POSITION AND SIDE RAILS UPX2. WILL CONTINUE TO MONITOR.
[2018-03-05] MEDS: RILPIVIRINE PO SCH (21:31)
[2018-03-05] MEDS: [UNRECOGNIZED DRUG - OTHER] PO SCH (21:31)
[2018-03-05] MEDS: EMTRICITABINE PO SCH (21:31)
[2018-03-05] MEDS: GABAPENTIN 300 MG CAPSULE PO SCH (21:31)
[2018-03-05] MEDS: TENOFOVIR DISOPROXIL FUMARATE PO SCH (21:31)
[2018-03-05] MEDS: [UNRECOGNIZED DRUG - OTHER] PO SCH (23:59)
[2018-03-05] MEDS: URSODIOL 500 MG PO SCH (23:59)
[2018-03-06] MEDS: TEMAZEPAM 15 MG CAPSULE PO PRN
[2018-03-06 04:00] VITALS: BP 105/82
[2018-03-06] MEDS: VANCOMYCIN IV 1 G in PREMIXED 0 EACH IV SCH ×2 (04:42→13:00)
[2018-03-06] MEDS: IV NS 1000 ML 1,000 ML IV PRN (05:41)
[2018-03-06] MEDS: ACYCLOVIR IV 500 MG in IV DEXTROSE 5% 100 ML IV SCH ×2 (05:53→14:00)
[2018-03-06] MEDS: ASPIRIN/ACETAMINOPHEN/CAFFEINE TABLET PO SCH ×2 (06:12→12:31)
[2018-03-06] MEDS: PANTOPRAZOLE SODIUM 40 MG TABLET.DR PO SCH (06:12)
[2018-03-06 06:13] LABS: BASOPHILS % (AUTO) 0.5 % (0.0-2.0); EOSINOPHILS # (AUTO) 0.1 K/uL (0.0-0.7); EOSINOPHILS % (AUTO) 1.2 % (0.0-7.0); HEMATOCRIT 42.8 % (36.7-47.1); HEMOGLOBIN 14.8 g/dL (12.5-16.3); LYMPHOCYTES # (AUTO) 1.3 K/uL (20.0-40.0); MEAN CORPUSCULAR HEMOGLOBIN 32.3 uug (23.8-33.4); MEAN CORPUSCULAR HGB CONC 35 g/dL (32.5-36.3); MEAN CORPUSCULAR VOLUME 93.2 fL (73.0-96.2); MONOCYTES # (AUTO) 0.4 K/uL (2.0-10.0); MONOCYTES % (AUTO) 5.3 % (0.0-11.0); NEUTROPHILS # (AUTO) 5.7 K/uL (1.8-8.9); PLATELET COUNT (AUTO) 101 K/uL (152-348); RED BLOOD CELL COUNT(AUTO) 4.59 MIL/uL (4.06-5.63); WHITE BLOOD COUNT (AUTO) 7.5 K/uL (3.6-10.2)
[2018-03-06 06:25] LABS: CREATININE 0.9 mg/dL (0.6-1.3); MAGNESIUM 1.8 mg/dL (1.8-2.4); PHOSPHOROUS 3.3 mg/dL (2.5-4.9); POTASSIUM 3.5 mmol/L (3.5-5.1)
--- NOTE | 2018-03-06 06:29 | NUR ---
PT SLEPT THROUGHOUT THE SHIFT. PT SHOWS NO SIGNS F DISTRESS. PT IV INTACT AND PATENT. PRESCRIBED MEDICATION GIVEN AND PT TOLERATED IT WELL. SAFETY AND COMFORT PROVIDED. WILL ENDORSE TO DAYSHIFT NURSE.
[2018-03-06] MEDS: BLOOD SUGAR DIAGNOSTIC 1 EACH STRIP VI SCH ×2 (06:38→11:47)
--- NOTE | 2018-03-06 07:41 | NUR ---
patient resting comfortably in bed, awake/alert, stable, no s/s of distress. possible D/C today. no complaints of pain verbalized by patient when asked. ivf running. will continue to monitor throughout shift.
[2018-03-06] MEDS: FAMOTIDINE 20 MG TABLET PO SCH (08:05)
[2018-03-06] MEDS: FLUTICASONE/VILANTEROL 1 EACH BLST.W.DEV IH SCH (08:05)
[2018-03-06] MEDS: LINAGLIPTIN 5 MG TABLET PO SCH (08:05)
[2018-03-06] MEDS: INSULIN REGULAR, HUMAN 300 UNIT/3 ML VIAL SQ PRN ×2 (08:15→11:51)
[2018-03-06 11:54] VITALS: BP 118/81
[2018-03-06] MEDS ORDERED: Aspirin/Acetaminophen/Caffeine PO (13:11)
[2018-03-06] MEDS ORDERED: GABA-534 PO (13:11)
[2018-03-06] MEDS ORDERED: OXYC-133 PO (13:11)
--- NOTE | 2018-03-06 14:27 | NUR ---
patient discharged at this time in stable condition. no s/s of distress. IV-access disconnected. ID-band taken off. vital signs stable for discharge. belongings checklist completed/signed by patient. blood sugar managed. Education/discharge instructions provided to patient. Pharmacist educated patient on new medications prescribed to patient by MD. discharge packet completed, signed by patient, provided a copy for patient. Patient discharged from hospital safely. Mode of transportation via private car (partner).
== END 2018-03-06 14:27 | disposition home or self-care (01) | DRG 74 ==
LOC: ER 16:26 → TELE 18:45 → MED 21:27
PROVIDERS: ADMIT Internal Medicine; ATTEND Internal Medicine
PROC: 009U3ZX Drainage of Spinal Canal, Percutaneous Approach, Diagnostic (ICD-10-PCS; principal; 2018-02-26)
DX: G90.8 Other disorders of autonomic nervous system (principal); E44.0 Moderate protein-calorie malnutrition; Z68.1 Body mass index [BMI] 19.9 or less, adult; G43.909 Migraine, unspecified, not intractable, without status migrainosus; G44.40 Drug-induced headache, not elsewhere classified, not intractable; E11.65 Type 2 diabetes mellitus with hyperglycemia; K21.9 Gastro-esophageal reflux disease without esophagitis; Z85.05 Personal history of malignant neoplasm of liver; Z98.1 Arthrodesis status; Z88.2 Allergy status to sulfonamides; D72.829 Elevated white blood cell count, unspecified; M62.50 Muscle wasting and atrophy, not elsewhere classified, unspecified site; E78.1 Pure hyperglyceridemia; L73.8 Other specified follicular disorders; M54.12 Radiculopathy, cervical region; G93.2 Benign intracranial hypertension; T50.905A Adverse effect of unspecified drugs, medicaments and biological substances, initial encounter; Y92.009 Unspecified place in unspecified non-institutional (private) residence as the place of occurrence of the external cause; L02.224 Furuncle of groin
CPT/HCPCS: 36415; 70553; 83735; 84100; 84157; 85025; 85610; 85730; 86361; 87086; 87205; 89051; 93005; A4663; A9150; J0133; J1100; J1170; J1815; J1885; J2270; J2405; J3370; J7030; J7060